=== PATIENT | female | born 1985 | race Caucasian/White ===

== ENCOUNTER 2018-03-10 00:23 | Emergency (ER) | payer MEDICAID ==
[~2018-03-10] VITALS: Ht 157.5 cm; Wt 60.6 kg
[~2018-03-10 00:23] MED LIST: CHLO25CA10 PO; FOLI1TAB16 PO; HYDR-569 PO; MAGN400C PO; MULT-1085 PO; VENL150C58 PO
[2018-03-10 00:38] VITALS: BP 152/52
[2018-03-10 01:45] LABS: URINE HCG NEGATIVE (NEG)
[2018-03-10 01:49] LABS: CLARITY,URINE CLEAR (Clear); COLOR,URINE YELLOW (Yellow); GLUCOSE, URINE NEGATIVE (Neg); KETONES,URINE TRACE mg/dl (Neg); LEUKOCYTE ESTERASE ,URINE SMALL (Neg); NITRITES, URINE NEGATIVE (Neg); OCCULT BLOOD,URINE SMALL (Neg); PROTEIN,URINE NEGATIVE (Neg); UROBILINOGEN,URINE 0.2 E.U/dL (0.2-1.0)
[2018-03-10 01:51] LABS: UA COLLECTION TYPE CLN CATCH MIDSTREAM
[2018-03-10 01:56] LABS: BACTERIA,URINE FEW /HPF (Neg); WBC,URINE 20-30 /HPF (0-4)
[2018-03-10 01:57] LABS: SQUAMOUS EPITHELIAL CELL,UR FEW /LPF (FEW); WBC CLUMPS,URINE FEW /HPF (NEGATIVE)
[2018-03-10] MEDS ORDERED: CEPH-572 PO (02:36)
== END 2018-03-10 03:44 | disposition home or self-care (01) ==
LOC: ER 00:23
DX: N39.0 Urinary tract infection, site not specified (principal); F12.90 Cannabis use, unspecified, uncomplicated; Z79.899 Other long term (current) drug therapy
CPT/HCPCS: 81001; 81025; 87088; 99284

== ENCOUNTER 2018-05-12 00:46 | Emergency (ER) | payer MEDICAID ==
[~2018-05-12] VITALS: Ht 157.5 cm; Wt 61.4 kg
[2018-05-12] MEDS ORDERED: normal saline 1000ML IV soln IVB ONE (01:30)
[2018-05-12 01:50] LABS: BASOPHILS # (AUTO) 0.1 X10'3 (0-0.2); BASOPHILS % (AUTO) 0.8 % (0-1); EOSINOPHILS % (AUTO) 0.2 % (0-6); HEMATOCRIT 38.2 % (35.0-45.0); HEMOGLOBIN 13.3 g/dl (12.0-16.0); LYMPHOCYTES # (AUTO) 1.2 X10'3 (1.1-4.8); LYMPHOCYTES % (AUTO) 14.9 % (21-51); MEAN CORPUSCULAR HEMOGLOBIN 33.1 PG (27.0-31.0); MEAN CORPUSCULAR HGB CONC 34.9 % (33.0-36.5); MEAN CORPUSCULAR VOLUME 94.8 FL (78-98); MEAN PLATELET VOLUME 7.9 FL (7.4-10.4); MONOCYTES # (AUTO) 0.6 X10'3 (0-0.9); NEUTROPHILS % (AUTO) 76.1 % (42-75); PLATELET COUNT 224 X10'3 (140-440); RED BLOOD COUNT 4.03 X10'6 (4.20-5.60); RED CELL DISTRIBUTION WIDTH 13.3 % (11.5-14.5); WHITE BLOOD COUNT 7.9 X10'3 (4.5-11.0)
[2018-05-12 02:10] LABS: ALANINE AMINOTRANSFERASE 38 U/L (12-78); ALBUMIN 4.3 G/DL (3.4-5.0); ALBUMIN/GLOBULIN RATIO 1.2 (1.1-1.5); ALKALINE PHOSPHATASE 97 IU/L (46-116); ANION GAP 18 (8-16); ASPARTATE AMINO TRANSFERASE 92 U/L (10-37); BILIRUBIN,TOTAL 0.4 MG/DL (0.1-1.0); BLOOD UREA NITROGEN 15 MG/DL (7-18); BUN/CREATININE RATIO 19.2 (6.6-38.0); CALCIUM 8.9 MG/DL (8.5-10.1); CHLORIDE 102 MMOL/L (99-107); CREATININE 0.78 MG/DL (0.40-0.90); GLUCOSE 115 MG/DL (70-104); LIPASE 158 U/L (73-393); POTASSIUM 3.4 MMOL/L (3.5-5.1); SODIUM 143 MMOL/L (135-145); TOTAL CARBON DIOXIDE 22.7 MMOL/L (24-32); TOTAL PROTEIN 7.8 G/DL (6.4-8.2); eGFR 86 ML/MIN
[2018-05-12] MEDS ORDERED: ondansetron/PF 4mg/2ml inj IV ONE (02:25)
[2018-05-12 03:00] VITALS: BP 114/72
== END 2018-05-12 03:02 | disposition home or self-care (01) ==
LOC: ER 00:46
DX: K92.0 Hematemesis (principal); F12.90 Cannabis use, unspecified, uncomplicated; Z79.899 Other long term (current) drug therapy
CPT/HCPCS: 36415; 71045; 80053; 83690; 85025; 96374; 99285; J2405; J7030

== ENCOUNTER 2020-12-22 15:10 | Emergency (ER) | payer BC, MEDICAID, OTHER ==
[~2020-12-22] VITALS: Ht 157.5 cm; Wt 79.0 kg
[~2020-12-22 15:10] MED LIST changes: +HYDR-4383 PO; -HYDR-569 PO
[2020-12-22 15:40] VITALS: BP 116/89
[2020-12-22] MEDS ORDERED: PENI250T2 PO (16:28)
[2020-12-22] MEDS ORDERED: NAPR-56 PO (16:28)
[2020-12-22] MEDS ORDERED: TRAM50TA2 PO (16:28)
== END 2020-12-22 16:42 | disposition home or self-care (01) ==
LOC: ER 15:11
DX: K08.89 Other specified disorders of teeth and supporting structures (principal); F12.90 Cannabis use, unspecified, uncomplicated; F41.9 Anxiety disorder, unspecified; Z72.89 Other problems related to lifestyle; Z79.899 Other long term (current) drug therapy
CPT/HCPCS: 99283